=== PATIENT | male | born 1970 | race Caucasian/White ===

== ENCOUNTER 2019-04-02 01:03 | Emergency (ER) | payer OTHER ==
--- NOTE | 2019-04-02 01:17 | EDPHY ---
H & P Stated Complaint: Suicidal, anxiety, "pressure on my head" Source: Patient - Personal History Current Tetanus Diphtheria and Acellular Pertussis (TDAP): No - Medical/Surgical History Hx Asthma: No Hx Chronic Respiratory Disease: No Hx Diabetes: No Hx Cardiac Disease: No Hx Renal Disease: No Hx Cirrhosis: No Hx Alcoholism: No Hx HIV/AIDS: No Hx Splenectomy or Spleen Trauma: No Other PMH: ADHD - Social History Smoking Status: Heavy smoker Time Seen by Provider: 04/02/19 01:17 HPI/ROS: HPI CHIEF COMPLAINT: Suicide ideation, anxiety HISTORY OF PRESENT ILLNESS: 48-year-old male, homeless, history of attention deficit hyperactivity disorder, depression, presents emergency room stating that he is feeling anxious and suicidal. He does not have a specific plan. He states he would like to speak with mental health. He reports to me typically is homeless up in [place]. However he has been staying in the [facility] for the past month. Tonight he became more depressed and feeling suicidal. Past Medical History: Attention deficit hyperactivity disorder, depression Past Surgical History: No recent surgical history Social History: Noncontributory Family History: Noncontributory ROS REVIEW OF SYSTEMS: 10 Systems were reviewed and negative with the exception of the elements mentioned in the history of present illness. Exam Constitutional nontoxic triage nursing summary reviewed, vital signs reviewed, awake/alert. Vital signs stable Eyes normal conjunctivae and sclera, EOMI, PERRLA. HENT normal inspection, atraumatic, moist mucus membranes, no epistaxis, neck supple/ no meningismus, no raccoon eyes. Respiratory clear to auscultation bilaterally, normal breath sounds, no respiratory distress, no wheezing. Cardiovascular rate normal, regular rhythm, no murmur, no edema, distal pulses normal. Gastrointestinal soft, non-tender, no rebound, no guarding, normal bowel sounds, no distension, no pulsatile mass. Genitourinary no CVA tenderness. Musculoskeletal no midline vertebral tenderness, full range of motion, no calf swelling, no tenderness of extremities, no meningismus, good pulses, neurovascularly intact. Skin pink, warm, & dry, no rash, skin atraumatic. Neurologic awake, alert and oriented x 3, AAOx3, moves all 4 extremities equally, motor intact, sensory intact, CN II-XII intact, normal cerebellar, normal vision, normal speech. Psychiatric normal mood/affect. Heme/Lymph/Immune no lymphadenopathy. Differential Diagnosis: Includes but is not limited to in a particular order underlying depression, mood disorder, bipolar disorder, depression, attention deficit hyperactivity disorder, anxiety Medical Decision Making: Plan for this patient blood draw for medical clearance , drug screen. Zyprexa 10 mg, and re-evaluate. Re-evaluation: 0700AM: No acute events overnight. Patient signed over to Dr. Sánchez. ( Indio Ortega) 0 700: The patient is signed out at shift by Dr. Ortega. I went evaluated the patient. He is resting comfortably in the room. He is easily arousable. He has no new complaints. (Sue Sánchez) Constitutional: Initial Vital Signs Temperature (C) 36.8 C 04/02/19 01:04 Heart Rate 72 04/02/19 01:04 Respiratory Rate 16 04/02/19 01:04 Blood Pressure 146/79 H 04/02/19 01:04 O2 Sat (%) 96 04/02/19 01:04 O2 Delivery Mode Room Air Allergies/Adverse Reactions: No Known Allergies Allergy (Unverified 04/02/19 01:08) Home Medications: Medication Instructions Recorded NK [No Known Home Meds] 12/07/13 Medical Decision Making ED Course/Re-evaluation: 750: Patient was evaluated by Psychiatric Services. Patient denies suicidal ideation. The patient was comfortable receiving resources and discharge. The patient was given warnings prior to leaving. (Sue Sánchez) - Data Points Laboratory Results: Laboratory Results 04/02/19 01:35 04/02/19 01:35 04/02/19 04/02/19 04/02/19 01:35 01:35 01:35 WBC 12.27 10^3/uL H 10^3/uL (3.80-9.50) RBC 4.98 10^6/uL 10^6/uL (4.40-6.38) Hgb 15.7 g/dL g/dL (13.7-17.5) Hct 45.5 % % (40.0-51.0) MCV 91.4 fL fL (81.5-99.8) MCH 31.5 pg pg (27.9-34.1) MCHC 34.5 g/dL g/dL (32.4-36.7) RDW 14.0 % % (11.5-15.2) Plt Count 344 10^3/uL 10^3/uL (150-400) MPV 9.3 fL fL (8.7-11.7) Neut % (Auto) 51.1 % % (39.3-74.2) Lymph % (Auto) 37.4 % % (15.0-45.0) [place] % (Auto) 7.7 % % (4.5-13.0) Eos % (Auto) 2.7 % % (0.6-7.6) Baso % (Auto) 0.9 % % (0.3-1.7) Nucleat RBC Rel Count 0.0 % % (0.0-0.2) Absolute Neuts (auto) 6.27 10^3/uL 10^3/uL (1.70-6.50) Absolute Lymphs (auto) 4.59 10^3/uL H 10^3/uL (1.00-3.00) Absolute Monos (auto) 0.95 10^3/uL H 10^3/uL (0.30-0.80) Absolute Eos (auto) 0.33 10^3/uL 10^3/uL (0.03-0.40) Absolute Basos (auto) 0.11 10^3/uL H 10^3/uL (0.02-0.10) Absolute Nucleated RBC 0.00 10^3/uL 10^3/uL (0-0.01) Immature Gran % 0.2 % % (0.0-1.1) Immature Gran # 0.02 10^3/uL 10^3/uL (0.00-0.10) Sodium 139 mEq/L mEq/L (135-145) Potassium 3.9 mEq/L mEq/L (3.5-5.2) Chloride 106 mEq/L mEq/L (97-110) Carbon Dioxide 24 mEq/l mEq/l (22-31) Anion Gap 9 mEq/L mEq/L (6-14) BUN 14 mg/dL mg/dL (7-23) Creatinine 0.9 mg/dL mg/dL (0.7-1.3) Estimated GFR > 60 Glucose 100 mg/dL mg/dL (70-100) Calcium 9.4 mg/dL mg/dL (8.5-10.4) Salicylates < 1.0 mg/dL L mg/dL (2.0-20.0) Urine Opiates Screen NEGATIVE (NEGATIVE) Acetaminophen < 10 mcg/mL L mcg/mL (10-30) Urine Barbiturates NEGATIVE (NEGATIVE) Ur Phencyclidine Scrn NEGATIVE (NEGATIVE) Ur Amphetamine Screen NEGATIVE (NEGATIVE) U Benzodiazepines Scrn NEGATIVE (NEGATIVE) Urine Cocaine Screen NEGATIVE (NEGATIVE) U Marijuana (THC) Screen NEGATIVE (NEGATIVE) Ethyl Alcohol < 10 mg/dL mg/dL (0-10) Medications Given: Discontinued Medications Olanzapine (Olanzapine) 10 mg PO ONCE ONE Stop: 04/02/19 02:51 Last Admin: 04/02/19 03:26 Dose: Not Given Departure - Departure Disposition: Home, Routine, Self-Care Clinical Impression: Depression Condition: Fair Instructions: Depression (ED) Additional Instructions: Return with increasing feelings of despair or any other concerns. Referrals: [facility],. [Clinic] - 2-3 days, if not improved
[2019-04-02 01:46] LABS: PLATELET COUNT 344 10^3/uL (150-400)
[2019-04-02] MEDS ORDERED: OLANZapine 5 MG TAB PO ONE (02:50)
--- NOTE | 2019-04-02 08:00 | ASMTLCPROG ---
Notes Note: Notes: REFERRAL CONSULTATION: Met with pt who presented last night on a voluntary basis with chief complaint of feeling anxious and suicidal ideation but no plan. Pt is homelessness, history of ADHD, depression. Pt reported feeling much better this morning and denied having current suicidal ideation/intent/plan to kill self and asked for referral resources. Pt was provided with printed resource information to [facility] and [facility]. Date Signed: 04/02/2019 08:00 AM Electronically Signed By:Lyle العراقي
[2019-04-02 08:02] VITALS: BP 90/56
--- NOTE | 2019-04-02 08:03 | ASMTTCLDSP ---
[facility] Discharge Disposition Disposition: Answers: Discharge If Answers: Yes DISCHARGED: Patient/family given suicide hotline info & [employer] brochure? Disposition Notes: Notes: Met with pt who presented last night on a voluntary basis with chief complaint of feeling anxious and suicidal ideation but no plan. Pt is homelessness, history of ADHD, depression. Pt reported feeling much better this morning and denied having current suicidal ideation/intent/plan to kill self and asked for referral resources. Pt was provided with printed resource information to [facility] and [facility]. Discharge Concerns/Recommendations: Notes: In consultation with [facility] ED physician, Sue Sánchez MD, Dr. Sánchez concurred that pt does not appear to meet 27-65 criteria requiring psychiatric hospitalization as pt does not appear to be an imminent risk of danger to self/others/gravely disabled due to a mental illness condition. Was patient given the Answers: Not applicable Inpatient Behavioral Health Prohibited Belongings List while in the ED? Date Signed: 04/02/2019 08:02 AM Electronically Signed By:Lyle العراقي
== END 2019-04-02 08:02 | disposition home or self-care (01) ==
DX: R45.851 Suicidal ideations (principal); F41.9 Anxiety disorder, unspecified; Z59.0 Homelessness
CPT/HCPCS: 80305; G0480